=== PATIENT | female | born 1995 | race Caucasian/White ===

== ENCOUNTER 2017-03-13 18:27 | Emergency (ER) | payer OTHER ==
[2017-03-13 18:58] VITALS: BP 147/101
--- NOTE | 2017-03-13 19:49 | UC ---
Tae Weller Thomas, scribed for Remington Doyle MD on 03/13/17 at 1856 . Abdominal Pain Female HPI - HPI Summary HPI Summary: The patient is a 21 year old female presenting to Urgent Care complaining of diffuse abdominal pain that began four days ago. The pain is intermittent. The pain is described as stabbing. The pain is rated 8/10. The pain does not radiate beyond her abdomen. She has never experienced this pain before. There are no known aggravating factors other than palpation. Patient additionally c/o diarrhea and vomiting (three days ago). Patient denies vaginal discharge, vaginal bleeding, black stools, and bloody stools. Her next menstrual cycle is due on 03/28/17. She is accompanied by her sister. - History of Current Complaint Chief Complaint: UCAbdominalPain Stated Complaint: STOMACH PAIN Time Seen by Provider: 03/13/17 18:40 Hx Obtained From: Patient Hx Last Menstrual Period: 03/13/17- not due until next week missed bcp d/t nausea Onset/Duration: Lasting Days - 4, Still Present Timing: Intermittent Episodes Lasting: Severity Currently: Severe Pain Intensity: 8 Pain Scale Used: 0-10 Numeric Location: Diffuse Radiates: No Aggravating Factor(s): Other: - Palpation Alleviating Factor(s): Nothing Associated Signs and Symptoms: Positive: Vomiting, Diarrhea. Negative: Fever, Blood in Stool, Vaginal Bleeding, Vaginal Discharge, Other: - black stools Allergies/Adverse Reactions: Allergies Allergy/AdvReac Type Severity Reaction Status Date / Time Amoxicillin Allergy Hives Unverified 03/13/17 18:50 PMH/Surg Hx/FS Hx/Imm Hx Previously Healthy: No - Concussions; NEGATIVE: DM - Surgical History Surgical History: Yes Surgery Procedure, Year, and Place: Benign mole removal from back - Family History Known Family History: Positive: Other - Appendicitis - Social History Alcohol Use: Weekly Substance Use Type: Marijuana Smoking Status (MU): Never Smoked Tobacco Review of Systems Constitutional: Other - NEGATIVE: fever Gastrointestinal: Abdominal Pain, Vomiting, Diarrhea Is Patient Immunocompromised?: No All Other Systems Reviewed And Are Negative: Yes Physical Exam Triage Information Reviewed: Yes Vital Signs: Initial Vital Signs Temp 98.3 F 03/13/17 18:35 Pulse 88 03/13/17 18:35 Resp 18 12/22/17 18:35 BP 147/101 03/13/17 18:35 Pulse Ox 100 03/13/17 18:35 Vital Signs Reviewed: Yes - Additional Comments VITAL SIGNS: Reviewed. GENERAL: Patient is a well-developed and nourished female who is lying comfortable in the stretcher. Patient is not in any acute respiratory distress. HEAD AND FACE: Normocephalic EYES: PERRLA, EOMI x 2. EARS: Hearing grossly intact. MOUTH: Oropharynx within normal limits. NECK: Supple, trachea is midline, no adenopathy, no JVD, no carotid bruit. CHEST: Symmetric, no tenderness at palpation LUNGS: Clear to auscultation bilaterally. No wheezing or crackles. CVS: Regular rate and rhythm, S1 and S2 present, no murmurs or gallops appreciated. ABDOMEN: Soft. She has diffuse abdominal tenderness with increased pain in the RLQ and LLQ. Bowel sounds are normal. No abdominal abnormal pulsations. EXTREMITIES: Full ROM in all major joints, no edema, no cyanosis or clubbing. NEURO: Alert and oriented x 3. No acute neurological deficits. Speech is normal and follows commands. SKIN: Dry and warm Abd Pain Female Course/Dx - Course Course Of Treatment: The patient is a 21 year old female presenting to Urgent Care complaining of diffuse abdominal pain that began four days ago. The pain is intermittent. The pain is described as stabbing. The pain is rated 8/10. The pain does not radiate from her abdomen. She has never experienced this pain before. There are no known aggravating factors other than palpation. Patient additionally c/o diarrhea and vomiting (three days ago). Patient denies vaginal discharge, vaginal bleeding, black stools, and bloody stools. Her next menstrual cycle is due on 03/28/17. She is accompanied by her sister. She has diffuse abdominal tenderness with increased pain in the RLQ and LLQ. Pain is 8-9 /10. The patient was instructed to go to the emergency department for further work up for the abdomnal pain. I offered her an ambulance, but she declines and will travel via private car. - Differential Dx/Diagnosis Differential Diagnosis: Appendicitis, Constipation, Diverticulitis, Ectopic , Renal Colic, Urinary Tract Infection Provider Diagnoses: Abdominal pain increased in the lower abdominal area Discharge - Discharge Plan Condition: Fair Disposition: OTHER Discharge Disposition Comment: Patient was instructed to travel to [facility] by private car. Patient Education Materials: Abdominal Pain (ED) Referrals: Marie Diane MD [Medical Doctor] - Additional Instructions: GO IMMEDIATELY TO [facility] EMERGENCY DEPART[facility]. The documentation as recorded by the astridibTae navarro Thomas accurately reflects the service I personally performed and the decisions made by , Remington Doyle MD.
== END 2017-03-13 19:00 ==
LOC: UCEAST 18:27
DX: R10.31 Right lower quadrant pain (principal); R10.32 Left lower quadrant pain; R11.10 Vomiting, unspecified; R19.7 Diarrhea, unspecified; Z88.0 Allergy status to penicillin
CPT/HCPCS: 99212; G0463

== ENCOUNTER 2017-03-13 19:19 | Emergency (ER) | payer OTHER ==
[2017-03-13] MEDS ORDERED: Morphine INJ* 4 MG/ML 1 ML CARPUJECT IV ONE (20:41)
[2017-03-13] MEDS ORDERED: Ondansetron INJ* 2 MG/ML VIAL IV ONE (20:41)
[2017-03-13] MEDS ORDERED: NS 0.9% 1000 ML* 1,000 ML IV ONE (20:41)
[2017-03-13 21:06] LABS: Hematocrit 42 % (35-47); Hemoglobin 14.2 g/dl (12.0-16.0); Mean Corpuscular HGB Conc 34 g/dl (31-36); Mean Corpuscular Hemoglobin 29 pg (27-31); Mean Corpuscular Volume 86 fL (80-97); Mean Platelet Volume 7 um3 (7.4-10.4); Red Blood Count 4.86 10^6/ul (4.0-5.4); Red Cell Distribution Width 12 % (10.5-15)
[2017-03-13 21:17] LABS: ALT 35 U/L (7-52); AST 25 U/L (13-39); Albumin 3.9 g/dL (3.2-5.2); Alkaline Phosphatase 50 U/L (34-104); Anion Gap 6 mmol/L (2-11); BUN/Creatinine Ratio 11.4 (8-20); Blood Urea Nitrogen 8 mg/dL (6-24); CO2 Carbon Dioxide 24 mmol/L (22-32); Calcium 8.9 mg/dL (8.6-10.3); Chloride 107 mmol/L (101-111); EGFR African American 135.8 (>60); EGFR Non-African American 105.6 (>60); Globulin 3.2 g/dL (2-4); Glucose 90 mg/dL (70-100); Lipase 16 U/L (11.0-82.0); Potassium 3.8 mmol/L (3.5-5.0); Sodium 137 mmol/L (133-145); Total Protein 7.1 g/dL (6.4-8.9)
[2017-03-13] MEDS ORDERED: Iohexol 300* (CONTRAST) 10 ML SDV IV ONE (22:08)
[2017-03-13] MEDS ORDERED: Metoclopramide IV* 5 MG/ML 2 ML VIAL IV ONE (22:55)
[2017-03-14] MEDS ORDERED: Ondansetron INJ* 2 MG/ML VIAL IV ONE (00:40)
[2017-03-14] MEDS ORDERED: Ketorolac INJ* 30 MG/ML 1 ML VIAL IV PUSH ONE (00:40)
[2017-03-14 01:01] LABS: Urine Bacteria Absent (Absent); Urine Bilirubin Negative (Negative); Urine Glucose Negative (Negative); Urine Nitrite Negative (Negative)
--- NOTE | 2017-03-14 01:53 | ED ---
Matthieu Weller Tiffany, scribed for Jose Conn on 03/13/17 at 2042 . Abdominal Pain/Female - HPI Summary HPI Summary: This patient is a 21 year old F presenting to [facility] accompanied by female with a chief complaint of abdominal since four days ago. The patient rates the pain 6 /10 in severity. Symptoms aggravated by nothing. Symptoms alleviated by nothing. Patient reports nausea, vomiting and diarrhea. Patient denies fever and dysuria. - History of Current Complaint Chief Complaint: EDNauseaVomitDiarrh Stated Complaint: ABD PAIN-SENT FROM [facility] Time Seen by Provider: 03/13/17 20:34 Hx Obtained From: Patient Hx Last Menstrual Period: one week ago Onset/Duration: Lasting Days - 4 days, Still Present Severity Currently: Moderate Pain Intensity: 6 Pain Scale Used: 0-10 Numeric Location: Diffuse Aggravating Factor(s): Nothing Alleviating Factor(s): Nothing Associated Signs and Symptoms: Positive: Other: - nausea, vomiting and diarrhea ; NEGATIVE: fever and dysuria Allergies/Adverse Reactions: Allergies Allergy/AdvReac Type Severity Reaction Status Date / Time Amoxicillin Allergy Hives Unverified 03/13/17 18:50 PMH/Surg Hx/FS Hx/Imm Hx Previously Healthy: No Endocrine/Hematology History: Denies: Hx Diabetes, Hx Thyroid Disease Cardiovascular History: Denies: Hx Hypertension Respiratory History: Denies: Hx Asthma, Hx Chronic Obstructive Pulmonary Disease (COPD) GI History: Denies: Hx Ulcer - Surgical History Surgery Procedure, Year, and Place: Benign mole removal from back Infectious Disease History: No Infectious Disease History: Denies: Hx Clostridium Difficile, Hx Hepatitis, Hx Human Immunodeficiency Virus (HIV), Hx of Known/Suspected MRSA, Traveled Outside the [place] in Last 30 Days - Family History Known Family History: Positive: Other - Pt denies knowledge of relevant family history - Social History Alcohol Use: Rare Hx Substance Use: No Substance Use Type: Reports: None Hx Tobacco Use: No Smoking Status (MU): Never Smoked Tobacco Review of Systems Negative: Fever Positive: Abdominal Pain, Vomiting, Diarrhea, Nausea Negative: dysuria All Other Systems Reviewed And Are Negative: Yes Physical Exam - Summary Physical Exam Summary: Appearance: Well appearing, no pain distress Skin: warm, dry, reflects adequate perfusion Head/face: normal Eyes: EOMI, MARGARETH ENT: normal Neck: supple, non-tender Respiratory: CTA, breath sounds present Cardiovascular: RRR, pulses symmetrical Abdomen: Diffuse tenderness, rebound in RLQ Bowel: present Musculoskeletal: normal, strength/ROM intact Neuro: normal, sensory motor intact, A&Ox3 Triage Information Reviewed: Yes Vital Signs On Initial Exam: Initial Vitals Temp Pulse Resp BP Pulse Ox 97.8 F 88 18 135/86 98 03/13/17 19:29 03/13/17 19:29 03/13/17 19:29 03/13/17 19:29 03/13/17 19:29 Vital Signs Reviewed: Yes - Nohemy Coma Scale Coma Scale Total: 15 Diagnostics - Vital Signs Vital Signs Temp Pulse Resp BP Pulse Ox 03/13/17 19:29 97.8 F 88 18 135/86 98 - Laboratory Lab Results: Lab Results 03/13/17 03/13/17 03/13/17 Range/Units 20:46 20:46 20:46 WBC 6.0 (3.5-10.8) 10^3/ul RBC 4.86 (4.0-5.4) 10^6/ul Hgb 14.2 (12.0-16.0) g/dl Hct 42 (35-47) % MCV 86 (80-97) fL MCH 29 (27-31) pg MCHC 34 (31-36) g/dl RDW 12 (10.5-15) % Plt Count 270 (150-450) 10^3/ul MPV 7 L (7.4-10.4) um3 Neut % (Auto) 60.5 (38-83) % Lymph % (Auto) 27.6 (25-47) % [place] % (Auto) 10.6 H (1-9) % Eos % (Auto) 0.7 (0-6) % Baso % (Auto) 0.6 (0-2) % Absolute Neuts (auto) 3.6 (1.5-7.7) 10^3/ul Absolute Lymphs (auto) 1.7 (1.0-4.8) 10^3/ul Absolute Monos (auto) 0.6 (0-0.8) 10^3/ul Absolute Eos (auto) 0 (0-0.6) 10^3/ul Absolute Basos (auto) 0 (0-0.2) 10^3/ul Absolute Nucleated RBC 0.01 10^3/ul Nucleated RBC % 0.1 INR (Anticoag Therapy) 1.03 H (0.77-1.02) APTT 31.9 (26.0-36.3) seconds Sodium 137 (133-145) mmol/L Potassium 3.8 (3.5-5.0) mmol/L Chloride 107 (101-111) mmol/L Carbon Dioxide 24 (22-32) mmol/L Anion Gap 6 (2-11) mmol/L BUN 8 (6-24) mg/dL Creatinine 0.70 (0.51-0.95) mg/dL Est GFR ( Amer) 135.8 (>60) Est GFR (Non-Af Amer) 105.6 (>60) BUN/Creatinine Ratio 11.4 (8-20) Glucose 90 (70-100) mg/dL Calcium 8.9 (8.6-10.3) mg/dL Total Bilirubin 0.40 (0.2-1.0) mg/dL AST 25 (13-39) U/L ALT 35 (7-52) U/L Alkaline Phosphatase 50 (34-104) U/L Total Protein 7.1 (6.4-8.9) g/dL Albumin 3.9 (3.2-5.2) g/dL Globulin 3.2 (2-4) g/dL Albumin/Globulin Ratio 1.2 (1-3) Lipase 16 (11.0-82.0) U/L Beta HCG, Quant < 0.60 mIU/mL Urine Color Urine Appearance Urine pH (5-9) Ur Specific [place] (1.010-1.030) Urine Protein (Negative) Urine Ketones (Negative) Urine Blood (Negative) Urine Nitrate (Negative) Urine Bilirubin (Negative) Urine Urobilinogen (Negative) Ur Leukocyte Esterase (Negative) Urine WBC (Auto) (Absent) Urine RBC (Auto) (Absent) Ur Squamous Epith Cells (Absent) Urine Bacteria (Absent) Urine Glucose (Negative) 03/14/17 Range/Units 00:24 WBC (3.5-10.8) 10^3/ul RBC (4.0-5.4) 10^6/ul Hgb (12.0-16.0) g/dl Hct (35-47) % MCV (80-97) fL MCH (27-31) pg MCHC (31-36) g/dl RDW (10.5-15) % Plt Count (150-450) 10^3/ul MPV (7.4-10.4) um3 Neut % (Auto) (38-83) % Lymph % (Auto) (25-47) % [place] % (Auto) (1-9) % Eos % (Auto) (0-6) % Baso % (Auto) (0-2) % Absolute Neuts (auto) (1.5-7.7) 10^3/ul Absolute Lymphs (auto) (1.0-4.8) 10^3/ul Absolute Monos (auto) (0-0.8) 10^3/ul Absolute Eos (auto) (0-0.6) 10^3/ul Absolute Basos (auto) (0-0.2) 10^3/ul Absolute Nucleated RBC 10^3/ul Nucleated RBC % INR (Anticoag Therapy) (0.77-1.02) APTT (26.0-36.3) seconds Sodium (133-145) mmol/L Potassium (3.5-5.0) mmol/L Chloride (101-111) mmol/L Carbon Dioxide (22-32) mmol/L Anion Gap (2-11) mmol/L BUN (6-24) mg/dL Creatinine (0.51-0.95) mg/dL Est GFR ( Amer) (>60) Est GFR (Non-Af Amer) (>60) BUN/Creatinine Ratio (8-20) Glucose (70-100) mg/dL Calcium (8.6-10.3) mg/dL Total Bilirubin (0.2-1.0) mg/dL AST (13-39) U/L ALT (7-52) U/L Alkaline Phosphatase (34-104) U/L Total Protein (6.4-8.9) g/dL Albumin (3.2-5.2) g/dL Globulin (2-4) g/dL Albumin/Globulin Ratio (1-3) Lipase (11.0-82.0) U/L Beta HCG, Quant mIU/mL Urine Color Straw Urine Appearance Clear Urine pH 5.0 (5-9) Ur Specific [place] > 1.060 H (1.010-1.030) Urine Protein Negative (Negative) Urine Ketones Negative (Negative) Urine Blood 2+ H (Negative) Urine Nitrate Negative (Negative) Urine Bilirubin Negative (Negative) Urine Urobilinogen Negative (Negative) Ur Leukocyte Esterase Negative (Negative) Urine WBC (Auto) Absent (Absent) Urine RBC (Auto) Trace(0-2/hpf) (Absent) Ur Squamous Epith Cells Present H (Absent) Urine Bacteria Absent (Absent) Urine Glucose Negative (Negative) Result Diagrams: 03/13/17 20:46 03/13/17 20:46 Lab Statement: Any lab studies that have been ordered have been reviewed, and results considered in the medical decision making process. - CT Abd/Pel CT Interpretation Completed By: Radiologist - There is no bowel obstruction, free air, or free fluid. Negative for diverticulitis or colitis. A normal appendix is seen. Multiple mildly enlarged mesenteric lymph nodes are noted. The possibility of mesenteric lymphadenitis should be considered. Follow up recommended to make sure these resolved and that there is no lymphoproliferative disorder. Normal kidneys urinary tract and urinary bladder. Normal spleen. Normal pancreas. No obvious gallbladder abnormalities. Normal adrenal glands. ED physician has reviewed this radiology report. Re-Evaluation - Re-Evaluation First Eval Re-Evaluation Time: 22:43 Change: Unchanged Comment: Spoke with patient's family. Still awaiting CT Abd/Pel report. Abdominal Pain Fem Course/Dx - Course Course Of Treatment: This patient is a 21 year old F presenting to [facility] accompanied by mother with a chief complaint of abdominal since four days ago. CT Abd/Pel reveals, per radiologist, There is no bowel obstruction, free air, or free fluid. Negative for diverticulitis or colitis. A normal appendix is seen. Multiple mildly enlarged mesenteric lymph nodes are noted. The possibility of mesenteric lymphadenitis should be considered. Follow up recommended to make sure these resolved and that there is no lymphoproliferative disorder. Normal kidneys urinary tract and urinary bladder. Normal spleen. Normal pancreas. No obvious gallbladder abnormalities. Normal adrenal glands. UA obtained. In the ED course the patient was given Morphine and Zofran. Patient will be discharged with prescription for Motrin and follow up from PCP. The patient is agreeable with this plan. - Diagnoses Differential Diagnosis: Positive: Appendicitis, Constipation, Diverticulitis, Urinary Tract Infection Provider Diagnoses: Mesenteric adenitis Discharge - Discharge Plan Condition: Stable Disposition: HOME Prescriptions: Ibuprofen TAB* [Motrin TAB* 600 MG] 600 mg PO Q8H PRN #21 tab MDD 3 PRN Reason: Pain Ondansetron ODT TAB* [Zofran 4 MG Odt TAB*] 4 mg PO Q8H PRN #15 tab.odt MDD 3 PRN Reason: Nausea Patient Education Materials: Mesenteric Adenitis (ED) Referrals: No Primary Care Phys,NOPCP [Primary Care Provider] - 3 Days Additional Instructions: You are advised to arrange a primary care provider to set up a follow up appointment in 3 days. Return to the Emergency Room if current symptoms worsen or if new symptoms develop. The documentation as recorded by the Matthieu clarke Tiffany accurately reflects the service I personally performed and the decisions made by Fabien grider Emmanuel.
[2017-03-14 03:25] VITALS: BP 122/60
--- NOTE | 2017-03-14 08:41 | RAD ---
Indication: Right lower quadrant pain. Contrast: Administered 145.0 ml of OMNIPAQUE 300 mg/ml CT of the abdomen and pelvis was performed after oral and IV contrast administration. Coronal and sagittal reconstructed images were obtained. Lung bases demonstrate no pleural fluid, nodules or masses. Heart is of normal size without evidence of pericardial effusion. Liver is normal in size. No focal lesions or intrahepatic duct dilatation is noted. The gallbladder demonstrates no calcified gallstones. No pericholecystic fluid or wall thickening is identified. The pancreas demonstrates no mass or pancreatic duct dilatation. The common duct is not dilated. The spleen is normal in size. No adrenal masses are noted. The kidneys demonstrate symmetric nephrograms without focal lesions. No retroperitoneal lymphadenopathy is noted. No dilated loops of bowel are noted. CT of the pelvis demonstrates no pelvic or retroperitoneal lymphadenopathy. Follicles are noted in both ovaries. The appendix is visualized and is within normal limits. No evidence of abnormal dilatation of bowel is noted. There are nonspecific mildly enlarged multiple lymph nodes in the mesentery. Possibility of mesenteric adenitis should BE considered. IMPRESSION: Normal appendix. Mesenteric adenitis should be considered due to multiple mildly enlarged mesenteric nodes.
== END 2017-03-14 02:00 | disposition home or self-care (01) ==
LOC: ED 19:19
DX: I88.0 Nonspecific mesenteric lymphadenitis (principal); Z88.3 Allergy status to other anti-infective agents
CPT/HCPCS: 36415; 74177; 80053; 81003; 81015; 83690; 84702; 85025; 85610; 85730; 96361; 96374; 96375; 96376; 99283; J1885; J2270; J2405; J2765; Q9967